=== PATIENT | male | born 1970 ===

== ENCOUNTER 2016-09-01 08:38 | Day surgery (SDC) | payer MEDICAID ==
[2016-05-06 11:04] VITALS: BMI 23.7
[2016-09-01] MEDS ORDERED: Lactated Ringer's 500 ML IV ONE (09:25)
[2016-09-01] MEDS ORDERED: Propofol 10 mg/ml Inj (20 ML) ONE (11:50)
[2016-09-01 12:28] VITALS: RESP 12; TEMP 96.9; O2SAT 99
[2016-09-01 12:43] VITALS: BP 103/71; PULSE 60
== END 2016-09-01 13:17 | disposition home or self-care (01) ==
LOC: H.ENDO 08:38
PROVIDERS: ATTEND Internal Medicine Gastroenterology
DX: Z12.11 Encounter for screening for malignant neoplasm of colon (principal); Z21 Asymptomatic human immunodeficiency virus [HIV] infection status; Z86.73 Personal history of transient ischemic attack (TIA), and cerebral infarction without residual deficits; K74.69 Other cirrhosis of liver; K64.0 First degree hemorrhoids; K31.9 Disease of stomach and duodenum, unspecified; K29.50 Unspecified chronic gastritis without bleeding

== ENCOUNTER 2017-12-27 14:05 | Inpatient (IN) | payer MEDICAID ==
--- NOTE | 2017-12-27 14:51 | ED PDOC ---
HPI: Psych/Substance Abuse Time Seen by Provider: 12/27/17 14:20 Chief Complaint (Nursing): Psychiatric Evaluation Chief Complaint (Provider): SI ED Caveat: Acuity of Condition History Per: Patient History/Exam Limitations: no limitations Onset/Duration Of Symptoms: Days Current Symptoms Are (Timing): Still Present Additional Complaint(s): 47 yo male with history of HIV and depression presents for evaluation of SI. Pt states he would take pills. Pt states he has been taking his medications as prescribed. Denies chest pain, SOB, headache. Past Medical History Reviewed: Historical Data, Nursing Documentation, Vital Signs Vital Signs: Last Vital Signs Temp 98 F 12/27/17 14:18 Pulse 93 H 12/27/17 14:18 Resp 17 12/27/17 14:18 BP 125/83 12/27/17 14:18 Pulse Ox 98 12/27/17 14:18 - Medical History PMH: Anxiety, CVA, Depression, Hepatitis (C), HIV, Kidney Stones ((HX. LASER TX. AND STENT PLACEMENT)) Denies: Diabetes, Chronic Kidney Disease - Surgical History Surgical History: No Surg Hx - Family History Family History: States: No Known Family Hx - Living Arrangements Living Arrangements: With Family - Social History Current smoker - smoking cessation education provided: No - Immunization History Hx Tetanus Toxoid Vaccination: No Hx Influenza Vaccination: Yes Hx Pneumococcal Vaccination: No - Home Medications Home Medications: Ambulatory Orders Medication Instructions Recorded Abacavir/Dolutegravir/Lamivudi 1 tab PO DAILY 10/02/14 [Triumeq Tablet] Mirtazapine [Remeron] 30 mg PO HS 04/18/16 Nicotine 21 mg/24 hr [Nicoderm CQ] 21 mg TD DAILY 04/18/16 Bupropion HCl [Zyban] 150 mg PO DAILY 09/01/16 Megestrol [Megace] 40 mg PO BID 09/01/16 Mv,Min10/Folic Acid/D3/Ala/Lut 1 tab PO DAILY 09/01/16 [Strovite One Caplet] - Allergies Allergies/Adverse Reactions: Allergies Allergy/AdvReac Type Severity Reaction Status Date / Time No Known Allergies Allergy Verified 04/18/16 16:47 Review of Systems ROS Statement: Except As Marked, All Systems Reviewed And Found Negative Constitutional: Negative for: Fever, Chills Cardiovascular: Negative for: Chest Pain, Palpitations Respiratory: Negative for: Cough, Shortness of Breath Physical Exam - Reviewed Nursing Documentation Reviewed: Yes Vital Signs Reviewed: Yes - Physical Exam Appears: Positive for: Well, Non-toxic, No Acute Distress Head Exam: Positive for: ATRAUMATIC, NORMAL INSPECTION, NORMOCEPHALIC Skin: Positive for: Normal Color, Warm, DRY Eye Exam: Positive for: Normal appearance ENT: Positive for: Normal ENT Inspection Neck: Positive for: Normal, Painless ROM Cardiovascular/Chest: Positive for: Regular Rate, Rhythm Respiratory: Positive for: Normal Breath Sounds. Negative for: Accessory Muscle Use, Respiratory Distress Back: Positive for: Normal Inspection Extremity: Positive for: Normal ROM Neurologic/Psych: Positive for: Alert, Oriented - Laboratory Results Result Diagrams: 12/27/17 14:44 12/27/17 14:44 - ECG O2 Sat by Pulse Oximetry: 98 Pulse Ox Interpretation: Normal Medical Decision Making Medical Decision Making: Crisis evaluation completed. Disposition - Clinical Impression Clinical Impression: Major depressive disorder, UTI (urinary tract infection) - Patient ED Disposition Is Patient to be Admitted: Yes - Disposition Disposition: Routine/Home Disposition Time: 17:31 Condition: STABLE Forms: [facility] [place] (Citizen Of [place])
[2017-12-27 14:55] LABS: HEMOGLOBIN 14.7 g/dL (12.0-18.0); MEAN CORPUSCULAR HEMOGLOBIN 35.5 pg (27.0-31.0); MEAN CORPUSCULAR HGB CONC 35.7 g/dL (33.0-37.0); RBC 4.13 Mil/uL (4.40-5.90); RED CELL DISTRIBUTION WIDTH 15.5 % (11.5-14.5); WHITE BLOOD COUNT 6.2 K/uL (4.8-10.8)
[2017-12-27 15:01] LABS: MEAN CELL VOLUME 99.6 fl (80.0-94.0)
[2017-12-27 15:10] LABS: ALB/GLOB RATIO 1.2 (1.0-2.1); ALBUMIN 4.3 g/dL (3.5-5.0); ALT/SGPT 14 U/L (21-72); AST/SGOT 17 U/L (17-59); BLOOD UREA NITROGEN 16 mg/dl (9-20); CALCIUM 9.6 mg/dL (8.4-10.2); GFR NON-AFRICAN AMERICAN 47
[2017-12-27 16:00] LABS: SQUAMOUS EPITHIAL 1 /hpf (0-5); URINE BACTERIA RARE (<OCC); URINE BILIRUBIN SMALL (NEGATIVE); URINE BLOOD NEGATIVE (NEGATIVE); URINE CLARITY SLIGHTY-CLOUDY (Clear); URINE COLOR YELLOW (YELLOW); URINE GLUCOSE (UA) NEG (Normal); URINE LEUKOCYTE ESTERASE TRACE Leu/uL (Negative); URINE PROTEIN 30 mg/dL (NEGATIVE)
[2017-12-27 16:29] LABS: BARBITURATES, UR NEGATIVE (NEGATIVE); BENZODIAZEPINES, UR NEGATIVE (NEGATIVE); OPIATES, UR NEGATIVE (NEGATIVE); PHENCYCLIDINE, UR NEGATIVE (NEGATIVE)
[2017-12-27 19:03] VITALS: O2SAT 98
[2017-12-27] MEDS ORDERED: Magnesium Hydroxide Susp 30 ml UD PO PRN (20:03)
[2017-12-27] MEDS ORDERED: DiphenhydrAMINE 50 mg/ml Inj IM PRN (20:03)
[2017-12-27] MEDS ORDERED: Alum-Mag Hydrox-Simethicone Susp (30 mL) PO PRN (20:03)
--- NOTE | 2017-12-27 20:56 | PCM.BM ---
<Zulma Clemons - Last Filed: 12/27/17 20:54> Treatment Plan Problems - Problems identified on initial assessmt Hopelessness/Helplessness Date Initiated: 12/27/17 Time Initiated: 20:54 Assessment reference: NA Status: Active Altered Sleep Patterns Date Initiated: 12/27/17 Time Initiated: 20:55 Assessment reference: NA Status: Active Treatment assets and liabiliti Patient Assests: cooperative, ADL independent, negotiates basic needs, cognitively intact Patient Liabilities: financial problems, substance abuse, medical problems - Milieu Protocol Maintain good personal hygiene: every shift Encourage regular showers, every shift Remind patient to perform daily oral care, every shift Assist patient to perform ADL's Conduct patient checks and document Observation sheet: Q15 minutes Maintain personal safety: every shift Educate patient to report safety concerns to staff, every shift Monitor environment for contraband/sharps Medication safety: Monitor for expected outcome, potential side effects: every shift, Assess barriers to learning: every shift, Assess readiness for medication education: every shift <Lilli Henson - Last Filed: 12/28/17 10:53> - Diagnosis (1) Major depressive disorder Status: Acute Interventions: Medication management, Individual and group therapy, Psychoeducation 12/28/17 10:54 (2) Generalized anxiety disorder Status: Acute Interventions: Medication management, Individual and group therapy, Psychoeducation 12/28/17 10:54 <Alex Chavez - Last Filed: 12/30/17 08:46> Family Contact Family involvement: Family/SO is involved Family contact: Patient agrees to contact, Family has been contacted by patient Family contact name: Heather Tariq - - [phone] Family contacted how many times per week?: 2 - Outside Agency Agency 1 Care involvment: Following patient during stay, Information-sharing Agency contact name: [facility] - [facility] Agency contact number: [phone]. Elder Counselor spoke with pt's case finisher at [facility], who reported that pt sees Leighton Cevallos as a primary doctor and goes to [facility] for Psychiatry. Pedro does not know who pt sees or his last appointment, but reported that pt has been compliant with all appointments and medications. Pedro has been working with pt for 2-3 years and reported that pt came to see him on Wednesday after his friend and expressed suicidal ideations with plan to overdose. That being said pt did not appear distraught and very behaviorally controlled. [phone]. - Goals for Treatment Patient goals for treatment: Pt would like his medications adjusted, so he feels less depressed. Discharge/Continuing Care - Education Needs Education Needs: Patient Medication, Patient Diagnosis/Disease Process, Patient Coping Skills, Patient Community resources, Patient Aftercare Safety Plan - Discharge Discharge Criteria: Tolerates medication w/o severe side effects, Free of Suicidal thoughts, Normal sleep pattern, Ability to care for self, Reduction of target symptoms Discharge to:: Home, With Family - Treatment Team Participation Patient/Family/SO Statement: 12/30/17 08:43 Pt seen in treatment team on 12/29/17. Pt is discharged focused and signed a 48 hour notice while in treatment team. Dr. Henson explained 48 hour notice and decision to not screen pt for invol. Pt to be discharged on 12/30/17. Pt reported he would not like to follow-up with [facility] as his psychiatrist does not speak [place]. Elder Counselor discussed having Leighton Cevallos be his psychiatric practitioner and pt agreed to this. Pt denied alll acute psychiatric services and wants to leave because he has things to take care of outside in the community. Discussed with Family/SO: No Was Patient/Family/SO present at Treatment Team Meeting: Yes
[2017-12-28 07:45] LABS: T4 8.2 ug/dl (5.5-11.0)
[2017-12-28 07:59] LABS: T3 0.911 nmol/L (1.49-2.60)
--- NOTE | 2017-12-28 07:59 | RAD ---
Date of service: 12/27/2017 HISTORY: SI - crisis evaluation COMPARISON: Chest radiographs 05/07/2016. Chest CT without contrast 09/09/2012. FINDINGS: LUNGS: No acute pulmonary disease. Coarse calcification is reiterated at the right base laterally with faint granulomatous calcifications noted at the right pulmonary apex and right suprahilar region. Calcified lymph nodes are seen along the inferior right peritracheal border once again as well. Prior left hemidiaphragm tenting appears to have resolved. PLEURA: No significant pleural effusion identified, no pneumothorax apparent. CARDIOVASCULAR: Normal. OSSEOUS STRUCTURES: No significant abnormalities. VISUALIZED UPPER ABDOMEN: Normal. OTHER FINDINGS: None. IMPRESSION: No interval acute cardiopulmonary disease. Postinflammatory/post granulomatous changes primarily at the right lung are reiterated, appearing stable. Resolution of prior left hemidiaphragm tenting.
--- NOTE | 2017-12-28 09:08 | CARD ---
APPROVED REPORT Date of service: 12/27/2017 EKG Measurement Heart [id number] <Conclusion> Normal sinus rhythm Early repolarization Normal ECG
--- NOTE | 2017-12-28 09:59 | PCM.PSYCH ---
Initial Psychiatric Evaluation - Initial Psychiatric Evaluation Type of Admission: Voluntary Legal Status: Capacity Chief Complaint (in patient's own words): "I wanted to kill myself." Patient's Reaction to Hospitalization: HPI: 47 yo male w/ depression and anxiety, presents w/ worsening depression in the context of the recent of a friend. He reports having suicidal ideations to overdose on pills. +Sleep/appetite disturbances. Denies AH/VH/ paranoia/delusions. PMHx: CVA, Hepatitis C, HIV, Kidney stone (h/o laser tx and stent placement) PPHx: Current outpatient psychiatric treatment w/ Xanax, Remeron and Risperdal ALL: NKDA SHx: Lives w/ , smokes MJ daily, denies ETOH use, smokes 10 cig/day Current Medications: Active Medications Generic Name Dose Route Start Last Admin Trade Name Freq PRN Reason Stop Dose Admin Acetaminophen 650 mg 12/27/17 20:03 Tylenol 325mg Tab PO Q4 PRN 4-7 pain Al Hydrox/Mg Hydrox/Simethicone 30 ml 12/27/17 20:03 Maalox Plus 30 Ml PO Q4 PRN Dyspepsia Diphenhydramine HCl 50 mg 12/27/17 20:03 Benadryl IM Q6 PRN Extrapyramidal S/S Unable PO Diphenhydramine HCl 50 mg 12/27/17 20:03 Benadryl PO Q6 PRN Extrapyramidal Symptoms Diphenhydramine HCl 50 mg 12/28/17 00:42 Benadryl PO HS PRN Sleep Haloperidol 5 mg 12/27/17 20:03 Haldol PO Q4 PRN Agitation Haloperidol Lactate 5 mg 12/27/17 20:03 Haldol IM Q4 PRN Agitation, Unable to Take PO Lorazepam 1 mg 12/27/17 22:09 Ativan PO Q6 PRN Agitation Lorazepam 1 mg 12/27/17 22:11 Ativan IM Q6 PRN Agitation Magnesium Hydroxide 30 ml 12/27/17 20:03 Milk Of Magnesia PO HS PRN Constipation Quetiapine Fumarate 400 mg 12/27/17 22:00 12/27/17 22:52 Seroquel PO Not Given HS JAILENE Risperidone 2 mg 12/27/17 22:00 12/27/17 21:19 Risperdal Tab PO 2 mg HS JAILENE Administration Past Psychiatric History - Past Psychiatric History Pertinent Medical Hx (Current Medical&Sleep Prob, Allergies): Allergies Allergy/AdvReac Type Severity Reaction Status Date / Time No Known Allergies Allergy Verified 04/18/16 16:47 Abacavir/Dolutegravir/Lamivudi [Triumeq Tablet] 1 tab PO DAILY 10/02/14 Mirtazapine [Remeron] 30 mg PO HS 04/18/16 Mv,Min10/Folic Acid/D3/Ala/Lut [Strovite One Caplet] 1 tab PO DAILY 09/01/16 Alprazolam [Xanax] 2 mg PO Q12 12/27/17 Ergocalciferol (Vitamin D2) [Vitamin D2] 50,000 unit PO MO 12/27/17 Megestrol Acetate [Megace] 40 mg PO BID 12/27/17 Risperidone [Risperdal] 2 mg PO HS 12/27/17 Review of Systems - Psychiatric Psychiatric: As Per HPI, Abnormal Sleep Pattern, Anhedonia, Anxiety, Change in Appetite, Depression, Difficulty Concentrating, Hopelessness, Irritability, Suicidal Ideation Mental Status Examination - Personal Presentation Personal Presentation: Looks older than stated age - Affect Affect: Constricted, Depressed - Motor Activity Motor Activity: Calm - Reliability in Providing Information Reliability in Providing Information: Fair - Speech Speech: Organized - Mood Mood: Depressed, Anxious - Formal Thought Process Formal Thought Process: No Impairment - Hallucinations/Delusions Additional comments: No AV/VH/paranoia/delusions - Obsessions/Compulsions Obsessions: No Compulsions: No - Cognitive Functions Orientation: Person, Place, Situation, Time Sensorium: Alert Attention/Concentration: Attentive Estimate of Intelligence: Average Judgement: Intact, as evidence by: Insight regarding need for hospitalization Memory: Recent intact, as evidence by: Ability to recall events of the day, Remote intact, as evidenced by: Abilit to recall sig. life events, Remote intact , as evidenced by: Ability to recall historical events - Risk Risk: Suicidal - Strength & Assets Inventory Strength & Assets Inventory: Cooperative DSM 5 DX - DSM 5 DSM 5 Diagnosis: Major Depressive Disorder; Generalized Anxiety Disorder - Recommended/Plan of Treatment Treatment Recommendations and Plan of Treatment: Major Depressive Disorder; Generalized Anxiety Disorder -Admit to psychiatry unit -Individual and group therapy -Continue Risperdal -Increase Remeron -Ativan PRN anxiety -Psychoeducation -Medicine consult -Disposition planning Projected ELOS: 5-10 days Discharge Plan and Discharge Criteria: Discharge when patient is psychiatrically stable - Smoking Cessation Smoking Cessation Initiated: No Reason for not providing: Patient declined
[2017-12-28 14:53] VITALS: BMI 21.1
--- NOTE | 2017-12-28 15:11 | CP.PCM.CON ---
History of Present Illness - History of Present Illness History of Present Illness: 47 yo male with PMHx of HIV, anxiety, depression, CVA presents to ED with worsening depression and suicidal ideation. Patient's close childhood friend 1 week ago which triggered his sadness and worsening depression. Patient was planning to take Xanax overdose but came to ER for help instead. Reports Sleep disturbances, sadness, decreased appetite. HIV diagnosed with HIV 15-20 years ago, well controlled with Triumeq. Follows up with Leighton weston. Patient had an episode of CVA 15 years ago and has right sided upper and lower extremity weakness since then. Denies any CP, SOB, headache, dizziness, palpitation, abdominal taylor, nausea, vomiting, diarrhea, constipation, dysuria or back pain. PCP: Leighton Weston PMHx: CVA(15 years ago), Hepatitis C(Treated 1 year ago), HIV(controlled), Kidney stone (h/o laser tx and stent placement) PSHx: None PPHx: Current outpatient psychiatric treatment w/ Xanax, Remeron and Risperdal Medications: Remeron, Risperidal, Xanax, Triumeq, Struvite, Ensure, Viagra. 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 absent: Anorexia, Excessive Sweating, Fever, Headache - EENT Eyes: absent: Change in Vision Nose/Mouth/Throat: absent: Dysphagia, Hoarsness, Odynophagia - Cardiovascular Cardiovascular: absent: Chest Pain, Dyspnea, Dyspnea on Exertion, Leg Edema - Respiratory Respiratory: absent: Cough, Dyspnea - Gastrointestinal Gastrointestinal: absent: Abdominal Pain, Belching, Bloating, Constipation, Diarrhea - Genitourinary Genitourinary: absent: Dysuria, Urinary Frequency, Urinary Urgency, Freq UTI - Musculoskeletal Musculoskeletal: absent: Back Pain - Neurological Neurological: absent: Dizziness, Headaches - Psychiatric Psychiatric: Depression, Suicidal Ideation Past Patient History - Past Medical History & Family History Past Medical History?: Yes - Past Social History Smoking Status: Light Smoker < 10 Cigarettes Daily Drugs: Cannabis - CARDIAC Hx Cardiac Disorders: Yes Other/Comment: Stroke 15 years ago - PULMONARY Hx Tuberculosis: No - HEENT Hx HEENT Problems: No - RENAL Hx Chronic Kidney Disease: No - ENDOCRINE/METABOLIC Hx Endocrine Disorders: No - HEMATOLOGICAL/ONCOLOGICAL Hx Human Immunodeficiency Virus (HIV): Yes - INTEGUMENTARY Hx Dermatological Problems: No - MUSCULOSKELETAL/RHEUMATOLOGICAL Hx Musculoskeletal Disorders: No Other/Comment: Right arm paralysis - GASTROINTESTINAL Hx Gastrointestinal Disorders: No - GENITOURINARY/GYNECOLOGICAL Hx Genitourinary Disorders: No - PSYCHIATRIC Hx Depression: Yes Hx Substance Use: Yes (Uses marijuana) - SURGICAL HISTORY Hx Surgeries: Yes Other/Comment: LASER KIDNEY STONE SURGERY - ANESTHESIA Hx Anesthesia: Yes Hx Anesthesia Reactions: No Hx Malignant Hyperthermia: No Meds Allergies/Adverse Reactions: Allergies Allergy/AdvReac Type Severity Reaction Status Date / Time No Known Allergies Allergy Verified 04/18/16 16:47 - Medications Medications: Current Medications Abacavir Sulfate (Ziagen) 600 mg PO DAILY JAILENE PRN Reason: Protocol Last Admin: 12/28/17 13:47 Dose: 600 mg Acetaminophen (Tylenol 325mg Tab) 650 mg PO Q4 PRN PRN Reason: 4-7 pain Al Hydrox/Mg Hydrox/Simethicone (Maalox Plus 30 Ml) 30 ml PO Q4 PRN PRN Reason: Dyspepsia Alprazolam (Xanax) 1 mg PO Q12 PRN PRN Reason: Anxiety Last Admin: 12/28/17 13:46 Dose: 1 mg Diphenhydramine HCl (Benadryl) 50 mg IM Q6 PRN PRN Reason: Extrapyramidal S/S Unable PO Diphenhydramine HCl (Benadryl) 50 mg PO Q6 PRN PRN Reason: Extrapyramidal Symptoms Diphenhydramine HCl (Benadryl) 50 mg PO HS PRN PRN Reason: Sleep Dolutegravir Sodium (Tivicay) 50 mg PO DAILY JAILENE PRN Reason: Protocol Last Admin: 12/28/17 13:49 Dose: 50 mg Haloperidol (Haldol) 5 mg PO Q4 PRN PRN Reason: Agitation Haloperidol Lactate (Haldol) 5 mg IM Q4 PRN PRN Reason: Agitation, Unable to Take PO Lamivudine (Epivir) 300 mg PO DAILY JAILENE PRN Reason: Protocol Last Admin: 12/28/17 13:48 Dose: 300 mg Lorazepam (Ativan) 1 mg PO Q6 PRN PRN Reason: Agitation Last Admin: 12/28/17 10:53 Dose: 1 mg Lorazepam (Ativan) 1 mg IM Q6 PRN PRN Reason: Agitation Magnesium Hydroxide (Milk Of Magnesia) 30 ml PO HS PRN PRN Reason: Constipation Megestrol Acetate (Megace) 40 mg PO BID [facility] Last Admin: 12/28/17 13:49 Dose: 40 mg Mirtazapine (Remeron) 45 mg PO HS JAILENE Risperidone (Risperdal Tab) 2 mg PO HS JAILENE Last Admin: 12/27/17 21:19 Dose: 2 mg Physical Exam - Constitutional Appears: Non-toxic, No Acute Distress - Head Exam Head Exam: ATRAUMATIC, NORMAL INSPECTION, NORMOCEPHALIC - Eye Exam Eye Exam: PERRL - ENT Exam ENT Exam: Mucous Membranes Moist - Respiratory Exam Respiratory Exam: Clear to Auscultation Bilateral, NORMAL BREATHING PATTERN. absent: Rales, Rhonchi, Wheezes - Cardiovascular Exam Cardiovascular Exam: REGULAR RHYTHM, +S1, +S2, Systolic Murmur - GI/Abdominal Exam GI & Abdominal Exam: Normal Bowel Sounds, Soft. absent: Distended, Guarding - Extremities Exam Extremities exam: Negative for: calf tenderness, joint swelling, pedal edema, tenderness - Back Exam Back exam: absent: CVA tenderness (L), CVA tenderness (R) - Neurological Exam Neurological exam: Abnormal Gait, Alert, Motor Sensory Deficit, Oriented x3 Additional comments: Right UE: Motor strength 1/5, Sensory deficits present + Right LE: Foot drop, Motor strength 3/5, Sensory deficits + Left UE and LE motor and sensory WNL Abnormal gait - Psychiatric Exam Psychiatric exam: Depressed, Suicidal Ideation - Skin Skin Exam: Dry, Intact, Normal Color Results - Vital Signs Recent Vital Signs: Last Vital Signs Temp 97.8 F 12/28/17 06:00 Pulse 79 12/28/17 06:00 Resp 20 12/28/17 06:00 BP 123/79 12/28/17 06:00 Pulse Ox 98 12/27/17 19:00 - Labs Result Diagrams: 12/27/17 14:44 12/27/17 14:44 Labs: Laboratory Results - last 24 hr 12/27/17 12/27/17 12/27/17 14:44 15:42 15:42 Sodium 141 Potassium 4.2 Chloride 110 H Carbon Dioxide 25 Anion Gap 10 BUN 16 Creatinine 1.6 H Est GFR ( Amer) 57 Est GFR (Non-Af Amer) 47 Random Glucose 75 Hemoglobin A1c Calcium 9.6 Total Bilirubin 0.2 AST 17 ALT 14 L D Alkaline Phosphatase 69 Total Protein 7.8 Albumin 4.3 Globulin 3.5 Albumin/Globulin Ratio 1.2 Triglycerides Cholesterol LDL Cholesterol Direct HDL Cholesterol Thyroxine (T4) Total T3 TSH 3rd Generation Urine Color Yellow Urine Clarity Slighty-cloudy Urine pH 5.0 Ur Specific [place] 1.030 Urine Protein 30 Urine Glucose (UA) Neg Urine Ketones Negative Urine Blood Negative Urine Nitrate Negative Urine Bilirubin Small Urine Urobilinogen 4.0 Ur Leukocyte Esterase Trace Urine RBC (Auto) 3 Urine Microscopic WBC 6 H Ur Squamous Epith Cells 1 Urine Bacteria Rare Urine Opiates Screen Negative Urine Methadone Screen Negative Ur Barbiturates Screen Negative Ur Phencyclidine Scrn Negative Ur Amphetamines Screen Negative U Benzodiazepines Scrn Negative U Oth Cocaine Metabols Negative U Cannabinoids Screen Positive H Alcohol, Quantitative < 10 12/28/17 12/28/17 06:00 07:17 Sodium Potassium Chloride Carbon Dioxide Anion Gap BUN Creatinine Est GFR ( Amer) Est GFR (Non-Af Amer) Random Glucose Hemoglobin A1c 5.2 Calcium Total Bilirubin AST ALT Alkaline Phosphatase Total Protein Albumin Globulin Albumin/Globulin Ratio Triglycerides 109 Cholesterol 160 LDL Cholesterol Direct 81 HDL Cholesterol 37 Thyroxine (T4) 8.20 Total T3 0.911 L TSH 3rd Generation 3.16 Urine Color Urine Clarity Urine pH Ur Specific [place] Urine Protein Urine Glucose (UA) Urine Ketones Urine Blood Urine Nitrate Urine Bilirubin Urine Urobilinogen Ur Leukocyte Esterase Urine RBC (Auto) Urine Microscopic WBC Ur Squamous Epith Cells Urine Bacteria Urine Opiates Screen Urine Methadone Screen Ur Barbiturates Screen Ur Phencyclidine Scrn Ur Amphetamines Screen U Benzodiazepines Scrn U Oth Cocaine Metabols U Cannabinoids Screen Alcohol, Quantitative Assessment & Plan - Assessment and Plan (Free Text) Assessment: 47 yo male with PMHx of HIV, anxiety, depression, CVA presents to ED with worsening depression and suicidal ideation. Plan: Depression W/suicidal ideation - Manage as per psych Substance use - Manage as per psych Abnormal Urinalysis - Asymptomatic, afebrile, No leukocytosis - UA in ER: + Trace leukocyte estrace, slightly cloudy - Patient received 1 dose of cipro - Will send urine for culture HIV - Well controlled - Last CD 4 count 590, VL Undetactable on 11/25/17 - C/W Abacavir 600 mg PO QD - C/W Dolutegravir 50 mg PO QD - C/W Lamivudine 300 mg PO QD H/O CVA - Right Upper and lower extremity weakness and foot drop - Not on ASA or statins as per ECW chart/PCP Vitamin D Deficiency - Last Vit D 9.3 in November - Ergocalceferol 54755 IU weekly
[2017-12-28] MEDS ORDERED: Ergocalciferol 50,000 Intl Units Cap PO SCH (17:15)
[2017-12-29] MEDS ORDERED: Ergocalciferol 50,000 Intl Units Cap PO SCH (09:00)
--- NOTE | 2017-12-29 10:58 | PCM.PYCHPN ---
Psychiatric Progress Note - Psychiatric Progress Note Patient seen today, length of contact: Patient evaluated, case discussed w/ team , chart reviewed Patient Chief Complaint: "I'm feeling better." Problems Identified/Issues Discussed: Patient submitted a 48 hr letter requesting to be discharged. He reports that his mood has improved. He denies acute depression/SI/HI/AH/VH. He denies adverse effects to medications. Psychoeducation provided on the dangers of chronic marijuana use and that the patient should attempt to taper his Xanax under the care of his outpatient provider. Medication Change: No Medical Record Reviewed: Yes Consults ordered or reviewed: Medicine consult Mental Status Examination - Cognitive Function Orientation: Person, Place, Situation, Time Memory: Intact Attention: WNL Concentration: WNL Association: WNL Fund of Knowledge: WNL Decription of patient's judgement and insights: Improving I/J - Mood Mood: Anxious - Affect Affect: Constricted - Speech Speech: Appropriate - Formal Thought Process Formal Thought Process: No Impairment Psychotic Thoughts and Behaviors: NO AH/VH/paranoia/delusions - Suicidal Ideation Suicidal Ideation: No - Homicidal Ideation Homicidal Ideation: No Goal/Treatment Plan - Goal/Treatment Plan Need for Continued Stay: Discharge may exacerbated symptoms Progress Toward Problem(s) and Goals/Treatment Plan: Major Depressive Disorder; Generalized Anxiety Disorder -Patient submitted a 48 hour letter requesting discharge; will observe clinically overnight and likely discharge tomorrow as the patient does not meet criteria for involuntary psychiatric commitment -Individual and group therapy -Continue Risperdal -Continue Remeron -Psychoeducation -Medicine consult -Disposition planning Estimated Date of D/C: 12/30/17
[2017-12-30 06:05] VITALS: BP 121/88; PULSE 79; RESP 20; TEMP 97.9
--- NOTE | 2017-12-30 08:37 | PCM.PYCHDC ---
Mental Status Examination - Mental Status Examination Orientation: Person, Place, Situation, Time Memory: Intact Mood: Neutral Affect: Broad Speech: Appropriate Attention: WNL Concentration: WNL Association: WNL Fund of Knowledge: WNL Formal Thought Process: No Impairment Description of patient's judgement and insight: Fair I/J Psychotic Thoughts and Behaviors: NO AH/VH/paranoia/delusions Suicidal Ideation: No Current Homicidal Ideation?: No Discharge Summary - Discharge Note Reason for Hospitalization: HPI: 47 yo male w/ depression and anxiety, presents w/ worsening depression in the context of the recent of a friend. He reports having suicidal ideations to overdose on pills. +Sleep/appetite disturbances. Denies AH/VH/ paranoia/delusions. PMHx: CVA, Hepatitis C, HIV, Kidney stone (h/o laser tx and stent placement) PPHx: Current outpatient psychiatric treatment w/ Xanax, Remeron and Risperdal ALL: NKDA SHx: Lives w/ , smokes MJ daily, denies ETOH use, smokes 10 cig/day Consultations:: List each consultation separately and include: 1. Reason for request. 2. Findings. 3. Follow-up Consultations: Medicine consult Summary of Hospital Course include:: 1. Description of specific treatment plan utilized for patients during their course of treatmen. 2. Summarize the time- course for resolution of acute symptoms and/or regressed behaviors. 3. Describe issues identified and worked on during hospitalization. 4. Describe medication utilized. 5. Describe medical problems identified and treated. 6. Reassessment of suicide risk Summary of Hospital Course: Patient was admitted to the psychiatry unit. Individual and group therapy were provided. Patient was stabilized on Remeron and Risperdal. Xanax was tapered. Patient submitted a 48 hr letter requesting to be discharged and he will be discharged as he does not meet criteria for involuntary psychiatric admission. He denies acute depression/anxiety/AH/VH/SI/HI. He is psychiatrically stable for discharge at this time. - Diagnosis (1) Major depressive disorder Current Visit: Yes Status: Chronic (2) Generalized anxiety disorder Current Visit: Yes Status: Chronic - Final Diagnosis (DSM 5) Condition upon Discharge: STABLE DSM 5: Major Depressive Disorder; Generalized Anxiety Disorder Disposition: HOME/ ROUTINE Follow-up Treatment Plan: Major Depressive Disorder; Generalized Anxiety Disorder -Continue Remeron 45 mg PO HS; Risperdal 2 mg PO HS -Xanax tapered to 1 mg PO Q12 -Psychoeducation -Medicine consult -Disposition planning Prescriptions/Medication Reconciliation: Ergocalciferol [Drisdol 50,000 Intl Units Cap] 1 cap PO Q7D@0900 #4 cap Mirtazapine [Remeron] 45 mg PO HS #90 tab Risperidone [Risperdal] 2 mg PO HS #30 tablet - Smoking Cessation Smoking Cessation Medication prescribed: No Reason for not providing: Patient declined - Antipsychotic Medications Pt discharged on 2 or more routine antipsychotic medications: No
== END 2017-12-30 10:45 | disposition home or self-care (01) | DRG 426 ==
LOC: H.ER 14:05 → H.ERHOLD 17:29 → H.STEP 19:40
PROVIDERS: ADMIT Psychiatry & Neurology Psychiatry; ATTEND Psychiatry & Neurology Psychiatry
PROC: GZHZZZZ Group Psychotherapy (ICD-10-PCS; principal; 2017-12-27)
PROC: GZ58ZZZ Individual Psychotherapy, Cognitive-Behavioral (ICD-10-PCS; 2017-12-27)
PROC: HZ52ZZZ Individual Psychotherapy for Substance Abuse Treatment, Cognitive-Behavioral (ICD-10-PCS; 2017-12-27)
DX: F32.9 Major depressive disorder, single episode, unspecified (principal); N39.0 Urinary tract infection, site not specified; F41.1 Generalized anxiety disorder; R45.851 Suicidal ideations; I69.331 Monoplegia of upper limb following cerebral infarction affecting right dominant side; F12.90 Cannabis use, unspecified, uncomplicated; Z21 Asymptomatic human immunodeficiency virus [HIV] infection status; M21.371 Foot drop, right foot; E55.9 Vitamin D deficiency, unspecified; F17.210 Nicotine dependence, cigarettes, uncomplicated; Z87.442 Personal history of urinary calculi; Z86.19 Personal history of other infectious and parasitic diseases